=== PATIENT | female | born 1945 | race Caucasian/White ===

== ENCOUNTER 2017-12-12 09:53 | Emergency (ER) | payer MEDICARE, MEDICAID ==
[~2017-12-12] VITALS: Ht 552.4 cm; Wt 77.0 kg
[~2017-12-12 09:53] MED LIST: ALBU17AE26 INH; DOCU-264 PO; OMEP20TA23 PO; TIOT18CA7 IH
[2017-12-12 10:43] LABS: CLARITY,URINE TURBID (Clear); COLOR,URINE STRAW (Yellow); GLUCOSE, URINE NEGATIVE (Neg); KETONES,URINE NEGATIVE (Neg); LEUKOCYTE ESTERASE ,URINE LARGE (Neg); NITRITES, URINE POSITIVE (Neg); OCCULT BLOOD,URINE LARGE (Neg); PROTEIN,URINE 30 mg/dl (Neg); UROBILINOGEN,URINE 0.2 E.U/dL (0.2-1.0)
[2017-12-12 10:45] LABS: UA COLLECTION TYPE VOIDED
[2017-12-12 10:47] LABS: WBC,URINE TNTC /HPF (0-4)
[2017-12-12 10:48] LABS: BACTERIA,URINE 4+ /HPF (Neg); MUCUS STRANDS NONE SEEN /LPF (Neg); SQUAMOUS EPITHELIAL CELL,UR NONE SEEN /LPF (FEW); WBC CLUMPS,URINE MANY /HPF (NEGATIVE)
[2017-12-12] MEDS ORDERED: CEPH-572 PO (10:55)
[2017-12-12 11:09] VITALS: BP 124/53
== END 2017-12-12 11:34 | disposition home or self-care (01) ==
LOC: ER 09:54
DX: N39.0 Urinary tract infection, site not specified (principal); K52.9 Noninfective gastroenteritis and colitis, unspecified; J44.9 Chronic obstructive pulmonary disease, unspecified; G89.29 Other chronic pain; Z90.49 Acquired absence of other specified parts of digestive tract; Z90.710 Acquired absence of both cervix and uterus; Z88.5 Allergy status to narcotic agent; Z79.899 Other long term (current) drug therapy
CPT/HCPCS: 71046; 81001; 87077; 87088; 87186; 99285

== ENCOUNTER 2022-10-24 17:59 | Emergency (ER) | payer MEDICARE, MEDICAID ==
[~2022-10-24] VITALS: Ht 157.5 cm; Wt 90.9 kg
[~2022-10-24 17:59] MED LIST changes: -DOCU-264 PO; +DOCU-323 PO
[2022-10-24 18:02] VITALS: BP 160/67
== END 2022-10-24 20:19 | disposition home or self-care (01) ==
LOC: ER 18:01
DX: S80.01XA Contusion of right knee, initial encounter (principal); J44.9 Chronic obstructive pulmonary disease, unspecified; G89.29 Other chronic pain; Z88.5 Allergy status to narcotic agent; Z88.8 Allergy status to other drugs, medicaments and biological substances; Z79.899 Other long term (current) drug therapy; X58.XXXA Exposure to other specified factors, initial encounter; Y93.89 Activity, other specified; Y92.89 Other specified places as the place of occurrence of the external cause; Y99.8 Other external cause status
CPT/HCPCS: 73564; 99283

== ENCOUNTER 2024-04-30 20:48 | Inpatient (IN) | payer MEDICARE, MEDICAID ==
[~2024-04-30] VITALS: Ht 157.5 cm; Wt 86.1 kg
[~2024-04-30 20:48] MED LIST changes: -DOCU-323 PO; +[UNRECOGNIZED DRUG - CODE] PO
[2024-04-30] MEDS ORDERED: FOSFOMYCIN TROMETHAMINE 3 GM PACKET PO ONE (21:10)
[2024-04-30 21:24] LABS: BILIRUBIN,URINE NEGATIVE (Neg); CLARITY,URINE CLEAR (Clear); COLOR,URINE YELLOW (Yellow); GLUCOSE, URINE NEGATIVE (Neg); KETONES,URINE 15 mg/dl (Neg); LEUKOCYTE ESTERASE ,URINE SMALL (Neg); NITRITES, URINE NEGATIVE (Neg); OCCULT BLOOD,URINE NEGATIVE (Neg); PROTEIN,URINE NEGATIVE (Neg); UROBILINOGEN,URINE 0.2 E.U/dL (0.2-1.0)
[2024-04-30 21:29] LABS: UA COLLECTION TYPE CLN CATCH MIDSTREAM
[2024-04-30 21:31] LABS: WBC,URINE 20-30 /HPF (0-4)
[2024-04-30 21:32] LABS: AMORPHOUS URATES 1+; BACTERIA,URINE 1+ /HPF (Neg); MUCUS STRANDS NONE SEEN /LPF (Neg); RBC,URINE 0-2 /HPF (0-2); SQUAMOUS EPITHELIAL CELL,UR MODERATE /LPF (FEW)
[2024-04-30 22:00] LABS: BASOPHILS % (AUTO) 0.4 % (0-1); EOSINOPHILS % (AUTO) 0.3 % (0-6); HEMATOCRIT 40.2 % (35.0-45.0); HEMOGLOBIN 14.3 g/dl (12.0-16.0); LYMPHOCYTES # (AUTO) 0.8 X10'3 (1.1-4.8); LYMPHOCYTES % (AUTO) 7.7 % (21-51); MEAN CORPUSCULAR HEMOGLOBIN 30.5 PG (27.0-31.0); MEAN CORPUSCULAR HGB CONC 35.5 g/dL (33.0-36.5); MEAN PLATELET VOLUME 8.6 FL (7.4-10.4); MONOCYTES # (AUTO) 1.2 X10'3 (0-0.9); MONOCYTES % (AUTO) 11.3 % (2-12); NEUTROPHILS # (AUTO) 8.6 X10'3 (1.8-7.7); NEUTROPHILS % (AUTO) 80.3 % (42-75); PLATELET COUNT 213 X10'3 (140-440); RED BLOOD COUNT 4.68 X10'6 (4.20-5.60); RED CELL DISTRIBUTION WIDTH 12.5 % (11.5-14.5); WHITE BLOOD COUNT 10.7 X10'3 (4.5-11.0)
[2024-04-30 22:17] LABS: ALANINE AMINOTRANSFERASE 15 U/L (12-78); ALBUMIN 3.3 G/DL (3.4-5.0); ALBUMIN/GLOBULIN RATIO 0.8 (1.1-1.5); ALKALINE PHOSPHATASE 66 IU/L (46-116); ANION GAP 12 (8-16); ASPARTATE AMINO TRANSFERASE 16 U/L (10-37); BILIRUBIN,TOTAL 1.2 MG/DL (0.1-1.0); BLOOD UREA NITROGEN 6 MG/DL (7-18); BUN/CREATININE RATIO 7.1 (10.0-20.0); CALCIUM 8.5 MG/DL (8.5-10.1); CHLORIDE 93 MMOL/L (99-107); CREATININE 0.84 MG/DL (0.40-0.90); GLUCOSE 118 MG/DL (70-104); POTASSIUM 3.5 MMOL/L (3.5-5.1); SODIUM 126 MMOL/L (135-145); TOTAL CARBON DIOXIDE 21.3 MMOL/L (24-32); TOTAL PROTEIN 7.3 G/DL (6.4-8.2); eCRCL 44 ML/MIN; eGFR 66 ML/MIN
[2024-04-30] MEDS: normal saline 1000ml 1,000 ML IV SCH (22:55)
[2024-04-30] MEDS: CefTRIAXone/D5W-Rocephin 1gm 50 ML IV ONE (22:55)
[2024-04-30] MEDS ORDERED: magnesium hydroxide 30ml (MOM) UD suspension PO PRN (23:45)
[2024-04-30] MEDS ORDERED: ondansetron/PF 4mg/2ml inj IV PRN (23:45)
[2024-04-30] MEDS ORDERED: potassium Cl 40MEQ/1/2NS 520ml 520 ML IV PRN (23:45)
[2024-04-30] MEDS ORDERED: magnesium sulf-water 2g/50mL 50 ML IV PRN (23:45)
[2024-04-30] MEDS ORDERED: magnesium sulf-water 4G/100mL 100 ML IV PRN (23:45)
[2024-04-30] MEDS ORDERED: mag hydrox/Alum hydrox/simeth 30ml oral suspension PO PRN (23:45)
[2024-04-30] MEDS ORDERED: potassium Cl 20 mEq SR tablet PO PRN (23:45)
[2024-04-30] MEDS ORDERED: magnesium Cl slow-release 64mg tablet PO PRN (23:45)
[2024-04-30] MEDS ORDERED: acetaminophen 325mg tablet PO PRN (23:45)
[2024-05-01] VITALS (9 sets, daily range): BP systolic 100–126; BP diastolic 42–75; PULSE 87–111; RESP 14–20; TEMP 97.9–98.8; O2SAT 93–97
[2024-05-01] MEDS ORDERED: ipratropium/albuterol 3ml nebule NEB PRN (00:15)
[2024-05-01 00:20] LABS: OSMOLALITY 258 MOSM/K (280-300)
[2024-05-01] MEDS ORDERED: ATOR20TA66 PO (00:34)
[2024-05-01] MEDS: PERFLUTREN PROTEIN-A MICROSPHR (Optison) 0.22 MG/ML 3ML VIAL IV ONE (01:33)
[2024-05-01 04:21] LABS: BASOPHILS % (AUTO) 0.1 % (0-1); EOSINOPHILS % (AUTO) 0.5 % (0-6); HEMATOCRIT 41.2 % (35.0-45.0); HEMOGLOBIN 14.3 g/dl (12.0-16.0); LYMPHOCYTES # (AUTO) 0.6 X10'3 (1.1-4.8); LYMPHOCYTES % (AUTO) 6.9 % (21-51); MEAN CORPUSCULAR HEMOGLOBIN 30.1 PG (27.0-31.0); MEAN CORPUSCULAR HGB CONC 34.7 g/dL (33.0-36.5); MEAN CORPUSCULAR VOLUME 86.8 FL (78-98); MEAN PLATELET VOLUME 8.6 FL (7.4-10.4); MONOCYTES # (AUTO) 1.1 X10'3 (0-0.9); MONOCYTES % (AUTO) 12.2 % (2-12); NEUTROPHILS # (AUTO) 7.4 X10'3 (1.8-7.7); NEUTROPHILS % (AUTO) 80.3 % (42-75); PLATELET COUNT 213 X10'3 (140-440); RED BLOOD COUNT 4.74 X10'6 (4.20-5.60); RED CELL DISTRIBUTION WIDTH 12.7 % (11.5-14.5); WHITE BLOOD COUNT 9.2 X10'3 (4.5-11.0)
[2024-05-01 04:37] LABS: ANION GAP 10 (8-16); BLOOD UREA NITROGEN 8 MG/DL (7-18); BUN/CREATININE RATIO 10.4 (10.0-20.0); CALCIUM 8.2 MG/DL (8.5-10.1); CHLORIDE 94 MMOL/L (99-107); CREATININE 0.77 MG/DL (0.40-0.90); GLUCOSE 113 MG/DL (70-104); MAGNESIUM 2.2 MG/DL (1.5-2.4); POTASSIUM 3.3 MMOL/L (3.5-5.1); SODIUM 127 MMOL/L (135-145); TOTAL CARBON DIOXIDE 23.1 MMOL/L (24-32); eCRCL 48 ML/MIN; eGFR 73 ML/MIN
[2024-05-01] MEDS: K and/or MAG REPLACEMENT MC SCH (08:00)
[2024-05-01] MEDS ORDERED: metoprolol succinate 25mg (24-HOUR) SR. Tablet PO SCH (08:00)
[2024-05-01] MEDS: pneumococcal 23-VAL P-sac vacc 25 mcg/0.5ml vial IMVAC ONE (09:00)
[2024-05-01] MEDS ORDERED: metoprolol tartrate 12.5mg (1/2 tablet) PO SCH (09:30)
[2024-05-01] MEDS ORDERED: BUDE10.2 INH (09:36)
[2024-05-01] MEDS ORDERED: FLUT1BLS4 INH (09:36)
[2024-05-01] MEDS: atorvastatin 10mg tablet PO SCH (09:40)
[2024-05-01] MEDS: docusate sod 100mg capsule PO SCH (09:41)
[2024-05-01] MEDS: potassium Cl 20 mEq SR tablet PO PRN (09:41)
[2024-05-01] MEDS: enoxaparin 40mg/0.4ml syringe SUBCUT SCH (09:46)
[2024-05-01] MEDS ORDERED: diltiazem 60mg tablet PO SCH (13:00)
[2024-05-01] MEDS: metoprolol tartrate 12.5mg (1/2 tablet) PO SCH (13:49)
[2024-05-01] MEDS: FLU VACC TS2024-25(6MOS UP)/PF 45 MCG/0.5 ML SYRINGE IMVAC ONE (16:15)
[2024-05-01] MEDS: apixaban 5mg tablet PO SCH (19:49)
[2024-05-01] MEDS: diltiazem 30mg tablet PO SCH (19:49)
[2024-05-01] MEDS: CefTRIAXone/D5W-Rocephin 1gm 50 ML IV SCH (19:51)
[2024-05-01] MEDS: Budesonide/Formoterol Fumarate (Symbicort 160-4.5 Mcg Inhaler) 2 PUFFS IH SCH (20:00)
[2024-05-02 06:34] LABS: BASOPHILS % (AUTO) 0.4 % (0-1); EOSINOPHILS # (AUTO) 0.1 X10'3 (0-0.9); EOSINOPHILS % (AUTO) 1.2 % (0-6); HEMATOCRIT 37.5 % (35.0-45.0); LYMPHOCYTES # (AUTO) 1.2 X10'3 (1.1-4.8); LYMPHOCYTES % (AUTO) 22.4 % (21-51); MEAN CORPUSCULAR HEMOGLOBIN 30.3 PG (27.0-31.0); MEAN CORPUSCULAR HGB CONC 34.7 g/dL (33.0-36.5); MEAN CORPUSCULAR VOLUME 87.4 FL (78-98); MEAN PLATELET VOLUME 8.9 FL (7.4-10.4); MONOCYTES % (AUTO) 17.9 % (2-12); NEUTROPHILS # (AUTO) 3.1 X10'3 (1.8-7.7); NEUTROPHILS % (AUTO) 58.1 % (42-75); PLATELET COUNT 208 X10'3 (140-440); RED BLOOD COUNT 4.28 X10'6 (4.20-5.60); WHITE BLOOD COUNT 5.4 X10'3 (4.5-11.0)
[2024-05-02 06:40] LABS: ALBUMIN 2.6 G/DL (3.4-5.0); ANION GAP 11 (8-16); BLOOD UREA NITROGEN 7 MG/DL (7-18); BUN/CREATININE RATIO 11.3 (10.0-20.0); CALCIUM 8.2 MG/DL (8.5-10.1); CHLORIDE 107 MMOL/L (99-107); CREATININE 0.62 MG/DL (0.40-0.90); GLUCOSE 106 MG/DL (70-104); MAGNESIUM 2.2 MG/DL (1.5-2.4); POTASSIUM 3.8 MMOL/L (3.5-5.1); SODIUM 137 MMOL/L (135-145); eCRCL 59 ML/MIN; eGFR > 90 ML/MIN
[2024-05-02 07:02] LABS: PLATELET ESTIMATE NORMAL; TOTAL CELLS COUNTED 100
[2024-05-02 07:03] LABS: LARGE PLATELETS FEW
[2024-05-02] MEDS: (Fluticasone/Umeclidin/Vilanter (Trelegy Ellipta 100-62.5-25) IH SCH (08:17)
[2024-05-02 10:00] VITALS: BP 117/60; PULSE 95; RESP 21; TEMP 98.3; O2SAT 96
[2024-05-02] MEDS ORDERED: DILT240C90 PO (12:19)
[2024-05-02] MEDS ORDERED: CIPR-259 PO (12:19)
[2024-05-02] MEDS ORDERED: LOP12.5T PO (12:19)
[2024-05-02] MEDS ORDERED: APIX5TAB3 PO (13:29)
== END 2024-05-02 14:30 | disposition home or self-care (01) | DRG 690 ==
LOC: ER 20:49 → UNDOADMIN 23:47 → ED HOLD 23:47 → EDBEDREQ 05-01 01:03 → ORTHO 4S 05-01 02:12 → ED HOLD 05-01 02:12 → ORTHO 4S 05-01 03:28
PROVIDERS: ADMIT Internal Medicine Critical Care Medicine; ATTEND Internal Medicine
PROC: 3E02340 Introduction of Influenza Vaccine into Muscle, Percutaneous Approach (ICD-10-PCS; principal; 2024-05-01)
PROC: 3E0234Z Introduction of Serum, Toxoid and Vaccine into Muscle, Percutaneous Approach (ICD-10-PCS; 2024-05-01)
DX: N39.0 Urinary tract infection, site not specified (principal); E87.1 Hypo-osmolality and hyponatremia; E86.0 Dehydration; I48.91 Unspecified atrial fibrillation; E66.01 Morbid (severe) obesity due to excess calories; Z68.34 Body mass index [BMI] 34.0-34.9, adult; J44.9 Chronic obstructive pulmonary disease, unspecified; K21.9 Gastro-esophageal reflux disease without esophagitis; M43.07 Spondylolysis, lumbosacral region; G89.4 Chronic pain syndrome; B96.1 Klebsiella pneumoniae [K. pneumoniae] as the cause of diseases classified elsewhere; Z88.5 Allergy status to narcotic agent; Z79.899 Other long term (current) drug therapy; Z79.01 Long term (current) use of anticoagulants; Z79.51 Long term (current) use of inhaled steroids; Z87.440 Personal history of urinary (tract) infections; Z87.891 Personal history of nicotine dependence; Z90.710 Acquired absence of both cervix and uterus; Z90.49 Acquired absence of other specified parts of digestive tract; Z85.42 Personal history of malignant neoplasm of other parts of uterus; Z85.038 Personal history of other malignant neoplasm of large intestine
CPT/HCPCS: 36415; 71045; 80048; 80053; 81001; 83735; 83930; 84145; 85007; 85025; 87077; 87081; 87088; 87186; 90686; 90732; 93005; 93306; 94760; 96374; 97116; 97162; 99285; G0378; J0696; J1650; J7030

== ENCOUNTER 2024-08-17 09:09 | Emergency (ER) | payer MEDICARE, MEDICAID ==
[~2024-08-17] VITALS: Ht 157.5 cm; Wt 80.5 kg
[~2024-08-17 09:09] MED LIST changes: -ALBU17AE26 INH; +APIX5TAB3 PO; +ATOR20TA66 PO; +BUDE10.2 INH; +DILT240C90 PO; +FLUT1BLS4 INH; +LOP12.5T PO; -OMEP20TA23 PO; -TIOT18CA7 IH
[2024-08-17 10:36] VITALS: BP 140/68; PULSE 72; RESP 16; TEMP 98.1; O2SAT 97
== END 2024-08-17 10:38 | disposition home or self-care (01) ==
LOC: ER 09:09
DX: S46.912A Strain of unspecified muscle, fascia and tendon at shoulder and upper arm level, left arm, initial encounter (principal); J44.9 Chronic obstructive pulmonary disease, unspecified; Z90.49 Acquired absence of other specified parts of digestive tract; Z90.710 Acquired absence of both cervix and uterus; Z87.440 Personal history of urinary (tract) infections; Z88.5 Allergy status to narcotic agent; Z79.01 Long term (current) use of anticoagulants; W01.0XXA Fall on same level from slipping, tripping and stumbling without subsequent striking against object, initial encounter; Y93.89 Activity, other specified; Y92.89 Other specified places as the place of occurrence of the external cause; Y99.8 Other external cause status
CPT/HCPCS: 73030; 73080; 99284; A4565